=== PATIENT | female | born 1970 | race Caucasian/White ===

== ENCOUNTER → 2017-09-25 | Outpatient (CLI) | payer OTHER ==
[~2017-09-25] MED LIST: AMT50 PO; BACL10TA PO; BUPR-79 PO; CARB25TA12 PO; EFFSR75 PO; EPP3/2 INJ; GABA600T PO; GADAVIST IV PRN; LPT20 PO; OMEP20CA9 PO; PRAM0.1212 PO; QUET1TAB32 PO; TRAM-10 PO
--- NOTE | 2017-09-25 09:30 | DIAGNOSTIC IMAGING REPORT ---
BRAIN COMBO FOR MS CLINICAL HISTORY: Possible multiple sclerosis. Memory loss/impairment, muscle spasms and tremor. COMPARISON STUDY: Head CT September 21, 2014. TECHNIQUE: Utilizing 1.5 Christi magnet, multiplanar, multiecho imaging of the brain was performed pre and postcontrast administration according to the multiple sclerosis protocol. Injection of 8.5 cc of Gadavist IV was uneventful. FINDINGS: There are no foci of restricted diffusion. No acute intracranial hemorrhage, midline shift or mass effect is present. Brain volume is normal. Ventricular system is normal. Basilar cisterns are patent. There are no extra-axial collections. Flow-voids for the major intracranial vessels are present. There is no intracranial mass or pathologic enhancement. A punctate focus of increased T2 signal within the periventricular white matter of the right frontal lobe is noted. There are no foci of signal abnormality to suggest multiple sclerosis. Calvarial signal is maintained. Orbits are unremarkable. IMPRESSION: 1. No acute intracranial findings. 2. No foci of signal abnormality to suggest demyelination. Punctate focus of increased T2 signal within the white matter of the right frontal lobe may reflect minimal small vessel disease or the sequela of migraine headaches. The appearance is not typical for multiple sclerosis. 3. No intracranial mass or pathologic enhancement. Electronically signed by: Hilton Salvador M.D. 09/25/2017 9:28 AM Dictated Date/Time: 09/25/2017 9:21 AM
== END | disposition home or self-care (01) ==
LOC: C.MRIBC 08:15
PROVIDERS: ATTEND Physician Assistant
DX: G25.81 Restless legs syndrome (principal); M62.838 Other muscle spasm; M79.1 Myalgia; R41.3 Other amnesia; R25.1 Tremor, unspecified

== ENCOUNTER → 2017-10-31 | Outpatient (CLI) | payer OTHER ==
[~2017-10-31] MED LIST changes: -GADAVIST IV PRN
--- NOTE | 2017-10-31 14:52 | DIAGNOSTIC IMAGING REPORT ---
PELVIC COMPLETE NON OB CLINICAL HISTORY: 46 years-old Female presenting with R10.2,PELVIC PAIN. TECHNIQUE: Real-time grayscale and color and spectral Doppler ultrasound imaging of the pelvis was performed first using a transabdominal probe and subsequently transvaginal for better characterization. COMPARISON: None. FINDINGS: Uterus: Subcentimeter cystic region along the posterior uterine wall in the subendometrial region. Additional similar-appearing regions evident likely minimal endometrial cystic change. Anteverted. The uterus measures 7.1 x 4.4 x 5.4 cm. Endometrial stripe measures 3 mm in thickness. Endometrium normal-appearing. Cervix contains nabothian cysts. Right adnexa: Right ovary contains a suspected dominant follicle. Right ovary measures 2.2 x 1.9 x 1.5 cm. Normal color Doppler flow and arterial and venous waveforms within the ovarian parenchyma. Left adnexa: Left ovary normal. Left ovary measures 3.0 x 2.1 x 2.2 cm. Normal color Doppler flow and arterial and venous waveforms within the ovarian parenchyma. Other: No free fluid. IMPRESSION: 1. No significant abnormality identified within the pelvis. No ovarian torsion. 2. Findings may represent subendometrial cysts or cystic endometrial hyperplasia. Electronically signed by: Paul Thacker M.D. 10/31/2017 2:51 PM Dictated Date/Time: 10/31/2017 2:13 PM
== END | disposition home or self-care (01) ==
LOC: C.ULTR 13:26
PROVIDERS: ATTEND Physician Assistant
DX: R10.2 Pelvic and perineal pain (principal)

== ENCOUNTER → 2018-01-29 | Outpatient (CLI) | payer OTHER ==
[~2018-01-29] MED LIST changes: +OPTIRAY 320 IV PRN
--- NOTE | 2018-01-29 09:16 | DIAGNOSTIC IMAGING REPORT ---
(HARJINDER/BLAD)RETROPERITON COMP CLINICAL HISTORY: 47 years-old Female presenting with ABNORMAL RENAL FUNCTIONS. TECHNIQUE: Real-time grayscale and limited color Doppler ultrasound imaging of the kidneys and bladder was performed. COMPARISON: 01/01/2018. FINDINGS: Right kidney: Normal echogenicity of renal parenchyma. Right kidney measures 8.3 cm. No hydronephrosis. No convincing evidence of calculus or mass. Left kidney: Normal echogenicity of renal parenchyma. Left kidney measures 9.2 cm. Mild pelviectasis. No convincing evidence of hydronephrosis. No convincing evidence of calculus or mass. Bladder: Normal. Bilateral ureteral jets present. Other: Hyperechogenicity of the liver parenchyma suggests hepatic steatosis. IMPRESSION: 1. Essentially normal renal ultrasound. No obstruction. 2. Hepatic steatosis. Electronically signed by: Paul Thacker M.D. 01/29/2018 9:15 AM Dictated Date/Time: 01/29/2018 9:12 AM
--- NOTE | 2018-01-29 10:06 | DIAGNOSTIC IMAGING REPORT ---
ABD/PELVIS IV AND ORAL CONT CLINICAL HISTORY: 47 years-old Female presenting with ABNORMAL RENAL FUNCTIONS ABD PAIN, mid abdominal pain, constipation and nausea. TECHNIQUE: Multidetector CT of the abdomen and pelvis was performed after the administration of oral and intravenous contrast. IV contrast: 120 mL of Optiray 320. A dose lowering technique was used consistent with the principles of ALARA (as low as reasonably achievable). COMPARISON: CT from 03/23/2008. CT DOSE (mGy.cm): The estimated cumulative dose is 924.34 mGycm. FINDINGS: [employer] topogram: Unremarkable. Lung bases: Minimal basilar opacities, likely atelectasis. Normal heart size. No pericardial or pleural effusion. Liver: Normal morphology. Hypodensity along the fissure for the ligament teres likely perfusional variation or focal fat. No liver lesion. Patent hepatic vasculature. Biliary: No intrahepatic or extrahepatic biliary ductal dilatation. Normal gallbladder. Pancreas: Normal. Spleen: Normal. Adrenal glands: Normal. Kidneys and ureters: Normal. No nephrolithiasis. No hydronephrosis. Bladder: Incompletely evaluated secondary to underdistention. Pelvic organs: Uterus and ovaries normal. Bowel: Moderate stool burden throughout normal caliber colon. No bowel obstruction. The appendix is normal. Peritoneal cavity: No free fluid or intraperitoneal gas. Lymph nodes: No enlarged lymph nodes in the abdomen or pelvis. Vasculature: Aorta and IVC patent and normal in caliber. Abdominal wall: Normal. Musculoskeletal: Normal. IMPRESSION: 1. No acute intra-abdominal pathology. No appendicitis. 2. Moderate stool burden could be consistent with constipation. Electronically signed by: Paul Thacker M.D. 01/29/2018 10:05 AM Dictated Date/Time: 01/29/2018 9:56 AM
== END | disposition home or self-care (01) ==
LOC: C.CTS 08:17
PROVIDERS: ATTEND Physician Assistant
DX: R94.4 Abnormal results of kidney function studies (principal); R10.84 Generalized abdominal pain

== ENCOUNTER → 2018-01-31 | Outpatient (CLI) | payer OTHER ==
[~2018-01-31] MED LIST changes: -OPTIRAY 320 IV PRN
--- NOTE | 2018-02-01 15:44 | MAMMOGRAPHY REPORT ---
BILATERAL DIGITAL SCREENING MAMMOGRAM TOMOSYNTHESIS WITH CAD: 01/31/2018 CLINICAL HISTORY: Routine screening. TECHNIQUE: The study was acquired using full field digital technology and interpreted from soft copy. Breast tomosynthesis in addition to standard 2D mammography was performed. Current study was also ev aluated with a Computer Aided Detection (CAD) system. COMPARISON: No prior exams were available for comparison. BREAST COMPOSITION: There are scattered areas of fibroglandular density in both breasts. FINDINGS: No suspicious masses, calcifications, or areas of architectural distortion are noted in either breast . A few small circumscribed benign-appearing masses are noted bilaterally, which are considered aaron gn given the multiplicity and bilaterality and likely represent small cysts. IMPRESSION: ACR BI-RADS CATEGORY 2: BENIGN There is no mammographic evidence of malignancy. A 1 year screening mammogram is recommended.( [id number]) The patient will receive written notification of the results. Some breast cancers are not detected with mammography. A negative mammographic report should not natali y biopsy if a clinically suggestive mass is present. Michelle Jacome M.D. ah/:01/31/2018 16:36:53 Frog Shaker: RT Judah(Ora)(M), [facility] letter sent: Normal 1/2 BI-RADS Code: ACR BI-RADS Category 2: Benign
== END | disposition home or self-care (01) ==
LOC: C.MAMM 13:08
PROVIDERS: ATTEND Physician Assistant
DX: Z12.31 Encounter for screening mammogram for malignant neoplasm of breast (principal)

== ENCOUNTER → 2018-02-01 | Outpatient (CLI) | payer OTHER ==
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
== END | disposition home or self-care (01) ==
LOC: C.NUCL 14:28
PROVIDERS: ATTEND Physician Assistant
DX: R94.5 Abnormal results of liver function studies (principal)